=== PATIENT | male | born 2000 | race Two or more races ===

== ENCOUNTER 2024-06-13 12:44 | Emergency (ER) | payer BC ==
[~2024-06-13] VITALS: Ht 182.9 cm; Wt 91.6 kg
[2024-06-13] MEDS ORDERED: ZITHROMAX500 MG PO (15:26)
[2024-06-13] MEDS ORDERED: LIDOCAINE HCL 4% Topic SOLUTION TOP ONE (15:30)
== END 2024-06-13 15:49 ==
LOC: ER 12:46
DX: H66.92 Otitis media, unspecified, left ear (principal); H61.22 Impacted cerumen, left ear